=== PATIENT | male | born 1965 | race Caucasian/White ===

== ENCOUNTER 2023-11-13 15:41 | Emergency (ER) | payer OTHER ==
[~2023-11-13] VITALS: Ht 182.9 cm; Wt 78.9 kg
[2023-11-13 19:29] VITALS: BP 121/62; PULSE 62; RESP 18; O2SAT 98
[2023-11-13] MEDS: APIXABAN 5 MG TABLET PO STA (19:37)
[2023-11-13] MEDS ORDERED: APIX5TAB PO (19:43)
== END 2023-11-13 19:51 | disposition home or self-care (01) ==
LOC: EDH 15:41
DX: I82.422 Acute embolism and thrombosis of left iliac vein (principal); E03.9 Hypothyroidism, unspecified; Z98.890 Other specified postprocedural states; Z88.8 Allergy status to other drugs, medicaments and biological substances
CPT/HCPCS: 93971

== ENCOUNTER → 2023-12-16 | Outpatient (CLI) | payer OTHER ==
[~2023-12-16] MED LIST: APIX5TAB PO; LEVO25TA4 PO
== END | disposition home or self-care (01) ==
LOC: RAH 08:48
PROVIDERS: ATTEND Internal Medicine Cardiovascular Disease
DX: I82.422 Acute embolism and thrombosis of left iliac vein (principal)
CPT/HCPCS: 93971

== ENCOUNTER → 2024-01-05 | Outpatient (CLI) | payer OTHER | END | disposition home or self-care (01) | LOC: OIH 13:31 | PROVIDERS: ATTEND Internal Medicine Cardiovascular Disease | DX: Z13.6 Encounter for screening for cardiovascular disorders (principal) | CPT/HCPCS: 75571 ==